=== PATIENT | female | born 1940 | race Caucasian/White ===

== ENCOUNTER 2017-02-16 00:30 | Emergency (ER) | payer MEDICARE, OTHER ==
[2017-02-16 00:39] VITALS: BP 154/83
--- NOTE | 2017-02-16 01:35 | EDM.PDOC ---
[id number] 4d MEDICAL / DIRECT TO ER [facility] Time Seen by Provider: 02/16/17 00:35 Source of Information: Reports: Patient, EMS, Family History Limitations: Reports: No Limitations - History of Present Illness INITIAL COMMENTS - FREE TEXT/NARRATIVE: This 76-year-old female was running by ambulance after having a sudden syncopal episode while watching fireworks. She felt like her head was feeling "pressure" and she was slowly blacking out and tried to sit down but then actually collapsed. She had no pain, no palpitations, no shortness of breath, she has been more active over the past 24 hours than normal and may have gotten dehydrated. She now feels fine. Onset: Sudden Severity: Moderate Associated Symptoms: Reports: Diaphoresis (Moderate diaphoresis). 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 Denies: Fever, Chills Respiratory: Denies: Shortness of Breath Cardiovascular: Reports: Syncope. Denies: Chest Pain GI/Abdominal: Denies: Abdominal Pain, Nausea, Vomiting Skin: Reports: No Symptoms Neurological: Denies: Headache Psychiatric: Reports: No Symptoms ED EXAM, GENERAL - Physical Exam Exam: See Below Exam Limited By: No Limitations General Appearance: Alert, No Apparent Distress Eye Exam: Bilateral Eye: Normal Inspection Neck: Normal Inspection Respiratory/Chest: No Respiratory Distress, Lungs Clear Cardiovascular: Regular Rate, Rhythm. No: Extra Beats GI/Abdominal: Soft, Non-Tender Extremities: Normal Inspection. No: Pedal Edema Neurological: Alert, Oriented, No Motor/Sensory Deficits Skin Exam: Warm, Dry Course - Vital Signs Last Recorded V/S: Last Vital Signs Temp 97 F 02/16/17 00:32 Pulse 85 02/16/17 00:32 Resp 16 02/16/17 00:32 BP 154/83 H 02/16/17 00:32 Pulse Ox 97 02/16/17 00:32 - Orders/Labs/Meds Labs: Laboratory Tests 02/16/17 02/16/17 Range/Units 00:59 00:59 WBC 16.5 H (4.5-11.0) K/uL RBC 4.47 (3.30-5.50) M/uL Hgb 14.3 (12.0-15.0) g/dL Hct 43.9 (36.0-48.0) % MCV 98 (80-98) fL MCH 32 H (27-31) pg MCHC 33 (32-36) % Plt Count 262 (150-400) K/uL Neut % (Auto) 82 H (36-66) % Lymph % (Auto) 10 L (24-44) % [place] % (Auto) 7 H (2-6) % Eos % (Auto) 1 L (2-4) % Baso % (Auto) 0 (0-1) % Sodium 142 (140-148) mmol/L Potassium 3.4 L (3.6-5.2) mmol/L Chloride 107 (100-108) mmol/L Carbon Dioxide 28 (21-32) mmol/L Anion Gap 10.4 (5.0-14.0) mmol/L BUN 19 H (7-18) mg/dL Creatinine 0.9 (0.6-1.0) mg/dL Est Cr Clr Drug Dosing 45.20 mL/min Estimated GFR (MDRD) > 60 (>60) Glucose 145 H (74-106) mg/dL Calcium 8.9 (8.5-10.1) mg/dL - Re-Assessments/Exams Free Text/Narrative Re-Assessment/Exam: 02/16/17 01:33 ekg monitor continued to show normal sinus rhythm. CBC and BMP were obtained , white count was elevated at 16.5 consistent with a vasovagal episode and the resulting adrenaline surge. Glucose was checked in route by EMS was normal, continues to be normal. Patient wanted to be discharged and I have no reason to insist on admission. She will return if symptoms recur. Departure - Departure Time of Disposition: 01:46 Disposition: Home, Self-Care 01 Condition: Good Clinical Impression: Syncope, vasovagal - Discharge Information Instructions: Vasovagal Syncope, Adult Referrals: PCP,None [Primary Care Provider] - Forms: ED Department Discharge Care Plan Goals: Drink lots of water over the next few days, stay hydrated, and return at any time if worsening or concerns.
== END 2017-02-16 01:46 | disposition home or self-care (01) ==
LOC: JP.ED 00:30
DX: R55 Syncope and collapse (principal); I10 Essential (primary) hypertension; Z90.89 Acquired absence of other organs
CPT/HCPCS: 36415; 80048; 85025; 99284

== ENCOUNTER 2017-07-27 10:24 | Day surgery (SDC) | payer MEDICARE, OTHER ==
[2017-07-27] MEDS ORDERED: Lactated Ringers 1,000 ML IV SCH (10:45)
[2017-07-27] MEDS ORDERED: fentaNYL 100 MCG/2 ML SDV ONE (11:44)
[2017-07-27] MEDS ORDERED: Lidocaine 1% with EPINEPHrine 1:100,000 50 ML MDV ONE (11:44)
[2017-07-27] MEDS ORDERED: Silver Nitrate Applicator Each ONE (11:44)
[2017-07-27] MEDS ORDERED: Propofol 200 MG/20 ML SDV ONE ×3 (11:44→12:48)
--- NOTE | 2017-07-27 13:34 | PCM.PRNOTE ---
- Free Text/Narrative Note: PREOPERATIVE DIAGNOSES: 1. thickened endometrium 2. vulvar lesion POSTOPERATIVE DIAGNOSES: 1. same PROCEDURE PERFORMED: 1. cervical block 2. Dilatation and curettage. 3. Hysteroscopy. 4. polypectomy 5. vulvar left labial biopsy GROSS FINDINGS: Uterus was anteverted, with fundal polyp. thickened skin lesio in labia majora PROCEDURE: The patient was taken to the operating room where she was properly prepped and draped in sterile manner under sedation. After bimanual examination , the cervix was exposed with a weighted vaginal speculum and the anterior lip of the cervix grasped with a vulsellum tenaculum. The uterus was sounded to a depth of 8 cm. The endocervical canal was then progressively dilated with Hanks and Hegar dilators to a #10 Hegar. The hysteroscope was then introduced into the uterine cavity using sterile saline solution as a distending media and with attached video camera. The endometrial cavity was distended with fluids and the cavity visualized. A fundal polyp was visualiazined and hysteroscopic resection was performed. The coronal areas were visualized bilaterally with corresponding tubal ostia. The patient tolerated the procedure well. Several pictures were taken of the endometrial cavity and the hysteroscope removed from the cavity. 3 mL of 1% lidocaine were injected in the left labia and punch biopsy was taken, 1 interrupted 4-0 vicryl was used for approximation.
[2017-07-27 14:55] VITALS: BP 150/65
== END 2017-07-27 15:04 | disposition home or self-care (01) ==
LOC: JP.SDS 10:24
PROVIDERS: ATTEND Obstetrics & Gynecology
DX: L90.0 Lichen sclerosus et atrophicus (principal); N84.0 Polyp of corpus uteri; E03.9 Hypothyroidism, unspecified; Z88.8 Allergy status to other drugs, medicaments and biological substances
CPT/HCPCS: 56605; 58558; J2704; J3010; J7120; 88305; 88312; 88342

== ENCOUNTER 2017-10-08 03:25 | Emergency (ER) | payer MEDICARE, OTHER ==
[2017-10-08 04:02] VITALS: BP 159/72
--- NOTE | 2017-10-08 04:35 | EDM.PDOC ---
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 For this particular event she states about 2 days ago started having light spotting and then tonight large amount of heavy bleeding black dark -colored blood with clots, however the bleeding has slowed down at the time of the emergency room visit. Denies any lightheadedness or shortness of breath - Related Data Allergies Allergy/AdvReac Type Severity Reaction Status Date / Time eye drop preservative Allergy Itching Uncoded 10/08/17 03:43 Home Meds: Home Meds Levothyroxine Sodium [Unithroid] 112 mcg PO DAILY 11/08/13 [History] Aspirin [Halfprin] 81 mg PO DAILY 07/26/17 [History] Lisinopril 20 mg PO DAILY 07/26/17 [History] Lovastatin 40 mg PO DAILY 07/26/17 [History] Past Medical History HEENT History: Reports: Cataract, Hard of Hearing Cardiovascular History: Reports: High Cholesterol, Hypertension Genitourinary History: Reports: UTI, Recurrent 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 bx Endocrine Surgical History: Reports: Thyroidectomy Oncologic Surgical History: Reports: Other (See Below) Other Oncologic Surgeries/Procedures: skin bx Dermatological Surgical History: Reports: Skin Biopsy Social & Family History - Tobacco Use Smoking Status *Q: Never Smoker Second Hand Smoke Exposure: Yes - Caffeine Use Caffeine Use: Reports: Coffee - Recreational Drug Use Recreational Drug Use: No ED ROS GENERAL - Review of Systems Review Of Systems: See Below Constitutional: Denies: Fever, Chills HEENT: Reports: No Symptoms Respiratory: Reports: No Symptoms Cardiovascular: Reports: No Symptoms GI/Abdominal: Reports: No Symptoms : Reports: Irregular Menses Musculoskeletal: Reports: No Symptoms ED EXAM, RENAL/ - Physical Exam Exam: See Below Exam Limited By: No Limitations General Appearance: Alert, WD/WN, No Apparent Distress (Female) Exam: Normal External Exam, Normal Speculum Exam, Normal Bimanual Exam. No: Cervical Lesions, Vaginal Bleeding, Vaginal Discharge, Vaginal Lesions, Vaginal Tears Rectal (Female) Exam: Normal Exam, Normal Rectal Tone, Hemorrhoids. No: Heme + Stool, Perirectal Abscess, Rectal Fissure, Tenderness Course - Vital Signs Last Recorded V/S: Last Vital Signs Temp 97.6 F 10/08/17 03:42 Pulse 104 H 10/08/17 03:42 Resp 16 10/08/17 03:42 BP 159/72 H 10/08/17 03:42 Pulse Ox 95 10/08/17 03:42 - Orders/Labs/Meds Orders: Active Orders 24 hr Category Date Time Status CULTURE URINE [RM] Urgent Lab 10/08/17 05:49 Ordered Labs: Laboratory Tests 10/08/17 10/08/17 10/08/17 Range/Units 04:30 04:30 04:30 WBC 8.5 (4.5-11.0) K/uL RBC 4.49 (3.30-5.50) M/uL Hgb 14.1 (12.0-15.0) g/dL Hct 43.7 (36.0-48.0) % MCV 97 (80-98) fL MCH 31 (27-31) pg MCHC 32 (32-36) % Plt Count 300 (150-400) K/uL Neut % (Auto) 62 (36-66) % Lymph % (Auto) 26 (24-44) % [place] % (Auto) 9 H (2-6) % Eos % (Auto) 3 (2-4) % Baso % (Auto) 0 (0-1) % Sodium 141 (140-148) mmol/L Potassium 4.5 (3.6-5.2) mmol/L Chloride 107 (100-108) mmol/L Carbon Dioxide 23 (21-32) mmol/L Anion Gap 11.2 (5.0-14.0) mmol/L BUN 24 H (7-18) mg/dL Creatinine 1.2 H (0.6-1.0) mg/dL Est Cr Clr Drug Dosing 32.66 mL/min Estimated GFR (MDRD) 43 L (>60) Glucose 123 H (74-106) mg/dL Calcium 9.2 (8.5-10.1) mg/dL Total Bilirubin 0.3 (0.2-1.0) mg/dL AST 15 (15-37) U/L ALT 17 (12-78) U/L Alkaline Phosphatase 64 (46-116) U/L C-Reactive Protein 0.23 (0.0-0.3) mg/dL Total Protein 6.7 (6.4-8.2) g/dL Albumin 3.4 (3.4-5.0) g/dL Globulin 3.3 (2.3-3.5) g/dL Albumin/Globulin Ratio 1.0 L (1.2-2.2) Urine Color Urine Appearance Urine pH (4.5-8.0) Ur Specific [place] (1.008-1.030) Urine Protein (NEGATIVE) mg/dL Urine Glucose (UA) (NEGATIVE) mg/dL Urine Ketones (NEGATIVE) mg/dL Urine Occult Blood (NEGATIVE) Urine Nitrite (NEGATIVE) Urine Bilirubin (NEGATIVE) Urine Urobilinogen (NORMAL) mg/dL Ur Leukocyte Esterase (NEGATIVE) Urine RBC (0-5) Urine WBC (0-5) Ur Epithelial Cells Amorphous Sediment Urine Bacteria Urine Mucus 10/08/17 Range/Units 05:00 WBC (4.5-11.0) K/uL RBC (3.30-5.50) M/uL Hgb (12.0-15.0) g/dL Hct (36.0-48.0) % MCV (80-98) fL MCH (27-31) pg MCHC (32-36) % Plt Count (150-400) K/uL Neut % (Auto) (36-66) % Lymph % (Auto) (24-44) % [place] % (Auto) (2-6) % Eos % (Auto) (2-4) % Baso % (Auto) (0-1) % Sodium (140-148) mmol/L Potassium (3.6-5.2) mmol/L Chloride (100-108) mmol/L Carbon Dioxide (21-32) mmol/L Anion Gap (5.0-14.0) mmol/L BUN (7-18) mg/dL Creatinine (0.6-1.0) mg/dL Est Cr Clr Drug Dosing mL/min Estimated GFR (MDRD) (>60) Glucose (74-106) mg/dL Calcium (8.5-10.1) mg/dL Total Bilirubin (0.2-1.0) mg/dL AST (15-37) U/L ALT (12-78) U/L Alkaline Phosphatase (46-116) U/L C-Reactive Protein (0.0-0.3) mg/dL Total Protein (6.4-8.2) g/dL Albumin (3.4-5.0) g/dL Globulin (2.3-3.5) g/dL Albumin/Globulin Ratio (1.2-2.2) Urine Color Yellow Urine Appearance Cloudy Urine pH 5.0 (4.5-8.0) Ur Specific [place] 1.010 (1.008-1.030) Urine Protein Negative (NEGATIVE) mg/dL Urine Glucose (UA) Normal (NEGATIVE) mg/dL Urine Ketones Negative (NEGATIVE) mg/dL Urine Occult Blood Large (NEGATIVE) Urine Nitrite Negative (NEGATIVE) Urine Bilirubin Negative (NEGATIVE) Urine Urobilinogen Normal (NORMAL) mg/dL Ur Leukocyte Esterase Large (NEGATIVE) Urine RBC 10-20 H (0-5) Urine WBC 10-20 H (0-5) Ur Epithelial Cells Many Amorphous Sediment Packed Urine Bacteria Not seen Urine Mucus Not seen Departure - Departure Time of Disposition: 05:52 Disposition: Home, Self-Care 01 Condition: Good Clinical Impression: Vagina bleeding - Discharge Information Referrals: Therese Velez NP [Primary Care Provider] - Forms: ED Department Discharge Additional Instructions: Please keep your follow-up appointment with your RECRUIT INSTRUCTOR we will contact you with the ultrasound results, call return to the emergency department worsening of symptoms - My Orders Last 24 Hours: My Active Orders 10/08/17 05:49 CULTURE URINE [RM] Urgent - Assessment/Plan Last 24 Hours: My Active Orders 10/08/17 05:49 CULTURE URINE [RM] Urgent Plan: Assessment Acuity = acute Site and laterality = vaginal bleeding Etiology = unclear etiology Manifestations = [none Location of injury = Home Lab values = hemoglobin normal at 14.1 creatinine elevated at 1.2 consistent with chronic renal failure stage G IIIB Plan I did review lab work with her she is reassured about her vaginal bleeding did set her up for an ultrasound which will be done as an outpatient she has a follow-up with her RECRUIT INSTRUCTOR in 2 weeks This note was dictated using [employer] voice recognition software please call with any questions on syntax or halima.
== END 2017-10-08 06:16 | disposition home or self-care (01) ==
LOC: JP.ED 03:25
DX: N93.9 Abnormal uterine and vaginal bleeding, unspecified (principal); E78.00 Pure hypercholesterolemia, unspecified; I10 Essential (primary) hypertension; E03.9 Hypothyroidism, unspecified; Z79.82 Long term (current) use of aspirin; Z79.899 Other long term (current) drug therapy
CPT/HCPCS: 36415; 80053; 81001; 85025; 86140; 87086; 99284

== ENCOUNTER 2021-03-13 11:20 | Emergency (ER) | payer MEDICARE ==
[2021-03-13 12:51] VITALS: BP 174/79; PULSE 78
--- NOTE | 2021-03-13 13:05 | EDM.PDOC ---
ED HPI GENERAL MEDICAL PROBLEM - General Chief Complaint: Skin Complaint Stated Complaint: R BIG TOE IS INFECTED BY CAT SCRATCH Time Seen by Provider: 03/13/21 12:45 Source of Information: Reports: Patient, Old Records History Limitations: Reports: No Limitations - History of Present Illness INITIAL COMMENTS - FREE TEXT/NARRATIVE: 80 yo female was seen a couple days ago by the [facility] for an infected cat bite/scratch to her R great toe. She was given Bactrim for this injury. Patient was not sure if it was improving or not and therefore the clinic told her to come to the ER. 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 below) (Bactrim) - Related Data Allergies Allergy/AdvReac Type Severity Reaction Status Date / Time eye drop preservative Allergy Itching Uncoded 03/13/21 12:44 Home Meds: Home Meds Levothyroxine Sodium [Unithroid] 112 mcg PO DAILY 11/08/13 [History] Aspirin [Halfprin] 81 mg PO DAILY 07/26/17 [History] Lovastatin 40 mg PO DAILY 07/26/17 [History] Sulfamethoxazole/Trimethoprim [Sulfamethoxazole-Tmp Ds Tablet] 1 tab PO BID 03/13/21 [History] Past Medical History HEENT History: Reports: Cataract, Hard of Hearing Cardiovascular History: Reports: High Cholesterol, Hypertension, Other (See Below) Other Cardiovascular History: "vascular issue with me leg veins" Gastrointestinal History: Reports: None Genitourinary History: Reports: UTI, Recurrent 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 bx Endocrine Surgical History: Reports: Thyroidectomy Oncologic Surgical History: Reports: Other (See Below) Other Oncologic Surgeries/Procedures: skin bx Dermatological Surgical History: Reports: Skin Biopsy Social & Family History - Tobacco Use Tobacco Use Status *Q: Never Tobacco User - Caffeine Use Caffeine Use: Reports: Coffee - Recreational Drug Use Recreational Drug Use: No ED ROS GENERAL - Review of Systems Review Of Systems: See Below Constitutional: Reports: No Symptoms. Denies: Fever, Chills Skin: Reports: Wound (puncture R great toe) ED EXAM, SKIN/RASH Exam: See Below Exam Limited By: No Limitations General Appearance: Alert, WD/WN, No Apparent Distress Extremities: Non-Tender, No Pedal Edema, Increased Warmth (minimal). No: Pedal Edema Neurological: Alert, Oriented, CN II-XII Intact, Normal Cognition, No Motor/Sensory Deficits Psychiatric: Normal Affect, Normal Mood Skin: Warm, Dry, No Rash, Ecchymosis. No: Erythema Location, Skin: Lower Extremity, Right Characteristics: Other (puncture) Associated features: Warmth (minimal). No: Lymphangitis Course - Vital Signs Last Recorded V/S: Last Vital Signs Temp 36.4 C 03/13/21 12:49 Pulse 78 03/13/21 12:49 Resp 16 03/13/21 12:49 BP 174/79 H 03/13/21 12:49 Pulse Ox 96 03/13/21 12:49 Departure - Departure Time of Disposition: 13:04 Disposition: Home, Self-Care 01 Condition: Good Clinical Impression: Cat bite involving extremity - Discharge Information *PRESCRIPTION DRUG MONITORING PROGRAM REVIEWED*: Not Applicable *COPY OF PRESCRIPTION DRUG MONITORING REPORT IN PATIENT MANDEEP: Not Applicable Instructions: Animal Bite, Adult, [id number] Referrals: Saskia Grimes PA-C [Primary Care Provider] - Additional Instructions: Continue your antibiotic. Warm soaks. Elevate. Recheck if a lot worse. Sepsis Event Note (ED) - Evaluation Sepsis Screening Result: No Definite Risk - Focused Exam Vital Signs: Vital Signs Temp Pulse Resp BP Pulse Ox 03/13/21 12:49 36.4 C 78 16 174/79 H 96
== END 2021-03-13 13:16 | disposition home or self-care (01) ==
LOC: JP.ED 11:20
DX: S91.131A Puncture wound without foreign body of right great toe without damage to nail, initial encounter (principal); E78.00 Pure hypercholesterolemia, unspecified; I10 Essential (primary) hypertension; E03.9 Hypothyroidism, unspecified; Z79.82 Long term (current) use of aspirin; Z79.899 Other long term (current) drug therapy; Z88.8 Allergy status to other drugs, medicaments and biological substances; W55.01XA Bitten by cat, initial encounter
CPT/HCPCS: 99283

== ENCOUNTER 2025-01-23 11:27 | Emergency (ER) | payer MEDICARE ==
[2025-01-23 12:23] VITALS: BP 168/74; PULSE 88
== END 2025-01-23 14:50 | disposition home or self-care (01) ==
LOC: JP.ED 11:27
DX: M17.11 Unilateral primary osteoarthritis, right knee (principal); I10 Essential (primary) hypertension; E78.00 Pure hypercholesterolemia, unspecified; E03.9 Hypothyroidism, unspecified; Z79.890 Hormone replacement therapy; Z79.82 Long term (current) use of aspirin; Z91.048 Other nonmedicinal substance allergy status
CPT/HCPCS: 73562-26-RT; 73562-RT; 93971-26; 93971-RT; 99283; 99284